=== PATIENT | female | born 1965 | race Two or more races ===

== ENCOUNTER 2025-01-20 18:07 | Emergency (ER) | payer OTHER ==
[~2025-01-20] VITALS: Ht 152.4 cm; Wt 70.3 kg
[2025-01-20 18:28] VITALS: BP 150/89; TEMP 97.9; O2SAT 99
[2025-01-20] MEDS ORDERED: ERYT3.5O9 RIGHTEYE (18:45)
[2025-01-20] MEDS ORDERED: ERYTHROMYCIN BASE OPHTH 3.5 GM TUBE ONE (18:56)
[2025-01-20] MEDS: ERYTHROMYCIN BASE OPHTH 3.5 GM TUBE OP ONE (19:01)
== END 2025-01-20 19:03 | disposition home or self-care (01) ==
LOC: ER 18:07
DX: H10.89 Other conjunctivitis (principal)